=== PATIENT | female | born 1930 | race Caucasian/White ===

== ENCOUNTER 2016-04-04 14:13 | Emergency (ER) | payer MEDICARE | END 2016-04-04 15:50 | disposition home or self-care (01) | LOC: MADERS 14:13 | DX: I95.9 Hypotension, unspecified (principal); I50.9 Heart failure, unspecified | CPT/HCPCS: 99284 ==

== ENCOUNTER 2016-04-05 08:03 | Outpatient (CLI) | payer MEDICARE ==
[2016-04-05 08:26] LABS: Hemoglobin A1c 5.7 % (4.0-6.0)
[2016-04-05 08:47] LABS: #Basophils 0.1 thou/uL (0.0-0.2); #Eosinphils 0.2 thou/uL (0.0-0.7); #Lymphocytes 3.3 thou/uL (1.20-3.40); #Monocytes 0.8 thou/uL (0.11-0.59); #Neutrophils 9.3 thou/uL (1.40-6.50); %Basophils 0.7 % (0.0-1.0); %Eosinophils 1.3 % (0.0-10.0); %Monocytes 6.1 % (0.0-10.0); %Neutrophils 67.9 % (42.0-75.0); Mean Corpuscular HGB CONC 34.5 g/dL (32.0-36.0); Mean Corpuscular Volume 98.6 fl (81.0-99.0); Mean Platelet Volume 8.9 fL (7.4-10.4); Platelet Count 156 thou/uL (130-400); RBC Distribution Width 12.2 % (11.5-14.5); Red Blood Cell (RBC) Count 4.39 mill/uL (4.20-5.40); White Blood Cell (WBC) Count 13.6 thou/uL (4.8-10.8)
[2016-04-05 09:24] LABS: ALT (SGPT) 32 U/L (0-55); AST (SGOT) 39 U/L (5-34); Albumin 3.6 g/dL (3.4-4.8); Alkaline Phosphatase 81 U/L (40-150); Anion Gap 16 mmol/L (10-20); BUN (Urea Nitrogen) 16 mg/dL (9.8-20.1); Bilirubin, Direct 0.4 mg/dL (0.1-0.3); Bilirubin, Total 1.1 mg/dL (0.2-1.2); Calc. Creatinine Clearance 0 mL/min (70-130); Calcium 9.2 mg/dL (7.8-10.44); Carbon Dioxide 22 mmol/L (23-31); Chloride 105 mmol/L (98-107); Estimated GFR-MDRD 51; Glucose 133 mg/dL (83-110); Potassium 4.4 mmol/L (3.5-5.1); Protein, Total 6.7 g/dL (5.8-8.1); Sodium 139 mmol/L (136-145)
== END 2016-04-05 08:04 | disposition home or self-care (01) ==
LOC: MADLABBHPM 08:03
PROVIDERS: ATTEND Family Medicine
DX: E11.22 Type 2 diabetes mellitus with diabetic chronic kidney disease (principal); N18.9 Chronic kidney disease, unspecified
CPT/HCPCS: 36415; 80048; 80076; 83036; 85025

== ENCOUNTER 2016-04-11 11:58 | Outpatient (CLI) | payer MEDICARE ==
--- NOTE | 2016-04-11 14:48 | RAD ---
LUMBAR SPINE THREE VIEWS: History: Low back pain since Saturday. No trauma. Comparison: None. FINDINGS: There is abnormal lucency of the posterior L5 vertebral body extending into the lamina. This is fel t to be on the right. 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 There are dense calcifications of the iliac arteries. IMPRESSION: Suggestion of a lucency posterior L5 vertebral body extending to the right lamina although it could be artifactual due to the type 4 lumbosacral transitional vertebra. MRI recommended. POS: [facility]
== END 2016-04-11 11:59 | disposition home or self-care (01) ==
LOC: MADLABBHPM 11:58
PROVIDERS: ATTEND Family Medicine
DX: M54.5 Low back pain (principal)
CPT/HCPCS: 72100

== ENCOUNTER 2016-04-20 12:21 | Outpatient (CLI) | payer MEDICARE ==
--- NOTE | 2016-04-20 14:30 | CT ---
LUMBAR SPINE CT SCAN WITHOUT IV CONTRAST HISTORY: An 85-year-old female with a history of abnormal lumbar spine plain film examination for follow-up e valuation. FINDINGS: There is moderate vertical height loss of the T12 vertebral body, evidence for a burst type fracture , age indeterminate, although it is new from an 09/19/2015 study and appears to show vertical height loss since the prior plain film examination of 04/11/2016. There is some retropulsion of the super ior aspect of the T12 vertebral body with some associated central canal stenosis. There is also ismael e disk osteophytosis at T11-T12, resulting in some mild canal stenosis. L1-L2: The L1-L2 disk is unremarkable. The L2-L3 level demonstrates some ligament and facet hypert rophic changes with mild dorsolateral recess narrowing. L3-L4: Diffuse disk bulging with ligament and facet hypertrophic changes with moderate central lam l and lateral recess stenosis. L4-L5: Diffuse disk bulging with ligament and facet hypertrophic changes with moderate central lam l and bilateral recess stenosis and foraminal stenosis, worse on the right side. L5-S1: Mild disk osteophytosis without significant focal central canal or foraminal stenosis. The L5 vertebral body shows no evidence for a lytic bone lesion. There are atherosclerotic changes of t he aorta, as well as the origins of the celiac, superior mesenteric, and renal arteries, with some p otential associated stenosis. IMPRESSION: 1. T12 vertebral body collapse, showing worsening when compared to a 04/11/2016 study, with some re tropulsion and moderate canal stenosis. 2. Heterogeneous bony demineralization. 3. Multi-level, variable severity canal, lateral recess, and foraminal stenosis. No evidence for a focal bone lesion involving the L5 vertebral body and laminal regions, which were of concern on the prior plain film examination. CODE T POS: [facility]
== END 2016-04-20 12:22 | disposition home or self-care (01) ==
LOC: MADCT 12:21
PROVIDERS: ATTEND Family Medicine
DX: R93.7 Abnormal findings on diagnostic imaging of other parts of musculoskeletal system (principal)
CPT/HCPCS: 72131

== ENCOUNTER 2016-04-22 14:09 | Emergency (ER) | payer MEDICARE ==
[~2016-04-22 14:09] MED LIST: Sodium Chloride 0.9% 1,000 ML BAG ONE; Sodium Chloride Irrig Solution 250 ML BOT ONE
[2016-04-22] MEDS ORDERED: Morphine Sulfate 2 MG/ML SYRINGE ONE ×2 (14:39→18:09)
[2016-04-22 15:09] LABS: INR-International Normal Ratio 1.6
[2016-04-22 15:14] LABS: #Basophils 0.1 thou/uL (0.0-0.2); #Lymphocytes 2.1 thou/uL (1.20-3.40); #Monocytes 0.8 thou/uL (0.11-0.59); #Neutrophils 10.6 thou/uL (1.40-6.50); %Basophils 0.4 % (0.0-1.0); %Eosinophils 0.3 % (0.0-10.0); %Lymphocytes 15.1 % (21.0-51.0); %Monocytes 5.9 % (0.0-10.0); %Neutrophils 78.3 % (42.0-75.0); Hemoglobin 13.5 g/dL (12.0-16.0); Mean Corpuscular HGB CONC 35.3 g/dL (32.0-36.0); Mean Corpuscular Hemoglobin 34.4 pg (27.0-31.0); Mean Corpuscular Volume 97.6 fl (81.0-99.0); Mean Platelet Volume 7.7 fL (7.4-10.4); Platelet Count 176 thou/uL (130-400); RBC Distribution Width 12.5 % (11.5-14.5); Red Blood Cell (RBC) Count 3.93 mill/uL (4.20-5.40); White Blood Cell (WBC) Count 13.6 thou/uL (4.8-10.8)
[2016-04-22 15:18] LABS: ALT (SGPT) 39 U/L (0-55); AST (SGOT) 41 U/L (5-34); Albumin 3.2 g/dL (3.4-4.8); Alkaline Phosphatase 112 U/L (40-150); Anion Gap 17 mmol/L (10-20); BUN (Urea Nitrogen) 22 mg/dL (9.8-20.1); Bilirubin, Total 1.4 mg/dL (0.2-1.2); Calc. Creatinine Clearance 0 mL/min (70-130); Carbon Dioxide 21 mmol/L (23-31); Chloride 98 mmol/L (98-107); Estimated GFR-MDRD 56; Globulin 2.7 g/dL (2.4-3.5); Glucose 146 mg/dL (83-110); Potassium 4.9 mmol/L (3.5-5.1); Protein, Total 5.9 g/dL (5.8-8.1); Sodium 131 mmol/L (136-145)
[2016-04-22 17:20] LABS: Bilirubin Negative (Negative); Blood, Urine Trace (Negative); Clarity Clear (Clear); Glucose, Urine (Dipstick) Negative (Negative); Leukocyte Negative (Negative); Nitrite Negative (Negative); Protein, Urine (Dipstick) Negative (Neg-Trace)
--- NOTE | 2016-04-22 17:22 | CT ---
CT CERVICAL SPINE: Date: 04-22-16 Provided Clinical History: Neck pain status post injury. FINDINGS: Comparison 12-13-15. No evidence for fracture or traumatic subluxation. Surgical degenerative changes are seen. No prev ertebral soft tissue swelling. The visualized lung apices appear clear. IMPRESSION: No evidence for fracture or traumatic subluxation. POS: [facility]
[2016-04-22 17:23] LABS: Bacteria/HPF Rare-Few HPF (None Seen); Squamous Epithelial 0-3 HPF (0-3); Transitional Epithelial 0-3 HPF (0-3)
--- NOTE | 2016-04-22 17:23 | CT ---
CT BRAIN: Date: 04-22-16 Provided Clinical History: Head pain status post injury. FINDINGS: Comparison 12-13-15. The ventricular system appears normal in size and morphology. There is no evidence for intracranial hemorrhage or mass effect. Extensive microvascular ischemic changes are demonstrated. The extracr anial soft tissues and osseous structures appear unremarkable other than right occipital scalp swell ing without subjacent fracture apparent. IMPRESSION: 1. No evidence for intracranial hemorrhage or skull fracture. POS: [facility]
--- NOTE | 2016-04-22 17:31 | CT ---
CT OF THE CHEST WITH IV CONTRAST CT OF THE ABDOMEN AND PELVIS WITH IV CONTRAST: Date: 04-22-16 Provided Clinical History: Trauma. FINDINGS: The heart, pericardium, and great vessels demonstrate no evidence for traumatic abnormality. Vascul ar calcification including coronary calcium is seen. There is a 1.3 cm superior segment right lower lobe pulmonary nodule. There is no pleural fluid or pneumothorax apparent. The airway appears patent and of normal caliber. There is no evidence for t horacic lymph node enlargement. There are multiple intrahepatic masses which are irregular in nature present in the right hepatic lo be, measuring 6.6 cm in greatest axial dimension at the right hepatic lobe near the dome. A 1.6 cm splenic mass is also noted. The gallbladder appears distended and demonstrates irregular internal c ystic areas and enhancing nodules as well as a circumscribed focus of rim calcification. There is a subcentimeter nodule present at the left lung base. The pancreas, adrenal glands, and kidneys appear unremarkable. There is no bowel dilatation, inflammatory fat stranding, free fluid or free air apparent. There is an abnormal hypodense appearance to the uterus which is contiguous with abnormal soft tissu e density in the left adnexa and the sigmoid colon. The osseous structures demonstrate no concerning osteoblastic or osteolytic lesions. Thoracic and l umbar spine reconstructions demonstrate acute appearing burst fracture of T12. Lumbar alignment brody ears normal. Vertebral body heights appear otherwise preserved. There is no significant bony canal stenosis at the level of the fracture. IMPRESSION: 1. Burst fracture involving T12 which appears acute. 2. Right sided pulmonary nodule, multiple hepatic masses, splenic mass and abnormal appearance to t he uterine endometrium and sigmoid colon. Findings are compatible with neoplastic change in these r egions. Site of prior neoplasm is not for certain. Endometrial carcinoma could be considered as co uld colonic carcinoma. Given the abnormal appearance to the gallbladder, differential consideration s would also include gallbladder neoplasm. This could also represent secondary involvement of the g allbladder or liver metastatic lesion. POS: [facility]
[2016-04-22] MEDS ORDERED: Lidocaine 2% w/Epinephrine 1:200K 20 ML VIAL ONE (18:00)
[2016-04-22] MEDS ORDERED: Lidocaine 1% 20 ML MDV ONE (18:00)
--- NOTE | 2016-04-22 19:04 | RAD ---
LEFT SMALL DIGIT RADIOGRAPHS: Date: 04-22-16 Provided Clinical History: Left small digit pain status post injury. FINDINGS: Soft tissue irregularities seen suggesting laceration without evidence for radiopaque soft tissue fo reign body. No evidence for fracture or other acute osseous abnormality. POS: [facility]
== END 2016-04-22 18:11 | disposition short-term general hospital (02) ==
LOC: MADERS 14:09
DX: S22.081A Stable burst fracture of T11-T12 vertebra, initial encounter for closed fracture (principal); C22.8 Malignant neoplasm of liver, primary, unspecified as to type; S61.217A Laceration without foreign body of left little finger without damage to nail, initial encounter; I11.0 Hypertensive heart disease with heart failure; I50.9 Heart failure, unspecified; Z79.82 Long term (current) use of aspirin; Z79.899 Other long term (current) drug therapy; W19.XXXA Unspecified fall, initial encounter
CPT/HCPCS: 36415; 51702; 70450; 71260; 72125; 74177; 80053; 81003; 81015; 85025; 85610; 93005; 96361; 96374; J2001; J2270; J7050